=== PATIENT | male | born 1995 | race American Indian/Alaskan Native ===

== ENCOUNTER 2017-03-12 19:18 | Emergency (ER) | payer OTHER ==
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
[2017-03-13 00:38] VITALS: BP 104/58
== END 2017-03-12 23:24 | disposition home or self-care (01) ==
LOC: ED 19:18
DX: S56.912A Strain of unspecified muscles, fascia and tendons at forearm level, left arm, initial encounter (principal); F17.200 Nicotine dependence, unspecified, uncomplicated; V48.5XXA Car driver injured in noncollision transport accident in traffic accident, initial encounter; Y92.488 Other paved roadways as the place of occurrence of the external cause; Y93.89 Activity, other specified; Y99.9 Unspecified external cause status
CPT/HCPCS: 99283

== ENCOUNTER 2017-08-12 20:15 | Emergency (ER) | payer SELFPAY ==
[2017-08-12] MEDS ORDERED: ASPIRIN PO ONE (20:41)
[2017-08-12 21:09] LABS: Basophils % (Auto) 0.5 % (0.0-1.8); Eosinophils # (Auto) 0.8 K/mm3 (0.0-0.4); Eosinophils % (Auto) 8.8 % (0.0-4.3); Hematocrit 38.4 % (35.5-45.6); Hemoglobin 13.4 gm/dl (11.8-15.2); Lymphocytes # (Auto) 2.6 K/mm3 (1.2-5.4); Lymphocytes % (Auto) 30.1 % (13.4-35.0); Mean Corpuscular HGB Conc 35 % (32-34); Mean Corpuscular Hemoglobin 32 pg (28-32); Mean Corpuscular Volume 92 fl (84-94); Monocytes # (Auto) 0.7 K/mm3 (0.0-0.8); Monocytes % (Auto) 7.6 % (0.0-7.3); Platelet Count 243 K/mm3 (140-440); Red Blood Count 4.16 M/mm3 (3.65-5.03); Red Cell Distribution Width 12.2 % (13.2-15.2)
[2017-08-12 21:19] LABS: BUN/Creatinine Ratio 15; Blood Urea Nitrogen 12 mg/dL (9-20); Calcium 9.2 mg/dL (8.4-10.2); Hemolysis Index 3
[2017-08-12] MEDS ORDERED: TORADOL IM ONE (23:44)
[2017-08-13] MEDS ORDERED: ASPIRIN ONE (00:02)
--- NOTE | 2017-08-13 00:16 | Emergency Department Report ---
HPI - General Chief Complaint: Chest Pain Time Seen by Provider: 08/12/17 23:09 - HPI HPI: The patient is a 22-year-old male presents for reevaluation of chest pain. The patient reports mild chest pain for the past 2 weeks, recurrent yesterday, constant since onset yesterday, cramping in quality, midsternal in location, currently moderate in severity. The patient denies fever, neck pain, parasthesias, dyspnea, cough, hemoptysis, palpitations, dizziness, syncope, unilateral leg swelling, calf muscle pain. Patient also denies cocaine or other stimulant use, history of DVT or PE, recent immobilization, or history of cancer. ED Past Medical Hx - Past Medical History Previous Medical History?: No - Surgical History Past Surgical History?: No - Social History Smoking Status: Current Every Day Smoker Substance Use Type: Alcohol, Marijuana - Medications Home Medications: Home Medications Medication Instructions Recorded Confirmed Last Taken Type Cyclobenzaprine [Flexeril] 10 mg PO BID PRN #10 tablet 03/12/17 Unknown Rx Ibuprofen [Motrin 600 MG tab] 600 mg PO Q8H PRN #30 tablet 03/12/17 Unknown Rx Doxycycline Hyclate [Doxycycline 100 mg PO Q12HR #14 tab 04/13/17 Unknown Rx Hyclate TAB] traMADol [Ultram 50 MG tab] 50 mg PO Q6HR PRN #15 tablet 08/12/17 Unknown Rx ED Review of Systems ROS: Stated complaint: CHEST PAIN,STD Other details as noted in HPI Constitutional: denies: fever ENT: denies: throat or neck pain Respiratory: denies: cough, shortness of breath Cardiovascular: reports: chest pain Endocrine: denies unexplained weight loss or gain Gastrointestinal: denies: abdominal pain, nausea Genitourinary: denies: dysuria Musculoskeletal: denies: leg swelling Skin: denies: rash Neurological: denies: headache Hematological/Lymphatic: denies: easy bleeding or easy bruising Psych: denies sadness or hopelessness Physical Exam - Physical Exam Vital Signs: Vital Signs 08/12/17 08/12/17 08/12/17 20:34 23:20 23:25 Temperature 98.9 F 98.2 F Pulse Rate 68 56 L 55 L Respiratory 20 18 16 Rate Blood Pressure 105/41 Blood Pressure 105/41 119/71 [Left] O2 Sat by Pulse 98 100 100 Oximetry 08/12/17 23:28 Temperature Pulse Rate Respiratory 16 Rate Blood Pressure Blood Pressure [Left] O2 Sat by Pulse 100 Oximetry Physical Exam: General: well-nourished, well-developed, no acute distress Head: Normocephalic, atraumatic Eyes: normal sclera ENT: Mucous membranes are pink and moist Neck: trachea midline, neck supple, No neck stiffness, no cervical adenopathy Respiratory: Breath sounds equal bilaterally, no wheezing, rales, or rhonchi Cardio: S1 and S2 present, no murmurs, rubs, gallops, capillary refill is brisk Abdomen: Normoactive bowel sounds, soft abdomen, no rigidity, no guarding or rebound tenderness Chest WALL/Back: No tenderness to palpation of the chest wall, no CVA tenderness with percussion Musc: No pitting edema Skin: No rash Neuro: no facial drooping, normal speech Psych: Normal affect ED Course Vital Signs 08/12/17 08/12/17 08/12/17 20:34 23:20 23:25 Temperature 98.9 F 98.2 F Pulse Rate 68 56 L 55 L Respiratory 20 18 16 Rate Blood Pressure 105/41 Blood Pressure 105/41 119/71 [Left] O2 Sat by Pulse 98 100 100 Oximetry 08/12/17 23:28 Temperature Pulse Rate Respiratory 16 Rate Blood Pressure Blood Pressure [Left] O2 Sat by Pulse 100 Oximetry ED Medical Decision Making - Lab Data Result diagrams: 08/12/17 20:54 08/12/17 20:54 - Medical Decision Making The patient was seen and examined by myself. The patient is placed on a ekg monitor and continuous pulse ox. On initial evaluation, the patient was found to be in no distress. EKG was negative for findings suggestive of acute cardiac infarct. Labs and imaging are obtained. The patient is given pain medicine. Chest x-ray is negative for pneumothorax, focal consolidation, pulmonary vascular congestion, pleural effusion, or other obvious acute cardiopulmonary disease process. Lab results were non-concerning including levels of troponin, WBC, hemoglobin, hematocrit, electrolytes, renal function. The patient was reevaluated and reported that their symptoms were markedly improved. As the patient has a LISA risk score less than 2, and a well's score less than 2, the patient is at low risk of ACS or pulmonary emboli etiology of their symptoms. The patient is stable for discharge with outpatient follow-up. The patient is given follow-up and return instructions. The patient expressed understanding and agreed with the plan. The patient is discharged in stable condition. Critical care attestation.: If time is entered above; I have spent that time in minutes in the direct care of this critically ill patient, excluding procedure time. ED Disposition Clinical Impression: Chest pain in adult Disposition: DC-01 TO HOME OR SELFCARE Is pt being admited?: No Does the pt Need Aspirin: No Condition: Stable Instructions: Chest Pain (ED), Costochondritis (ED) Referrals: DOMINIQUE AREVALO MD [Primary Care Provider] - 3-5 Days Time of Disposition: 23:44
[2017-08-13] MEDS ORDERED: XYLOCAINE 1% MPF 5 mL INFILTRATI ONE (00:37)
[2017-08-13] MEDS ORDERED: ROCEPHIN IM ONE (00:37)
[2017-08-13] MEDS ORDERED: ZITHROMAX PO ONE (00:37)
[2017-08-13] MEDS ORDERED: ZITHROMAX ONE (00:42)
[2017-08-13] MEDS ORDERED: XYLOCAINE 1% MPF 5 mL ONE (00:43)
[2017-08-13] MEDS ORDERED: ROCEPHIN ONE (00:43)
[2017-08-13 01:34] VITALS: BP 103/64
--- NOTE | 2017-08-13 08:01 | XRay Report ---
FINAL REPORT EXAM: XR CHEST 1V AP HISTORY: chest pain TECHNIQUE: A portable view of the chest was obtained. FINDINGS: The heart size and vascularity appear normal. There are calcified lymph nodes in left hilum and left suprahilar area. There are no acute infiltrates or effusions. There EKG leads overlying the chest wall. The bones and soft tissues do not show any acute changes. IMPRESSION: No active chest disease.
== END 2017-08-13 01:35 | disposition home or self-care (01) ==
LOC: ED 20:15
DX: R07.2 Precordial pain (principal); F17.200 Nicotine dependence, unspecified, uncomplicated; F12.10 Cannabis abuse, uncomplicated
CPT/HCPCS: 36415; 71045; 80048; 84484; 85025; 93005; 93010; 96372; 99284; J0696; J1885

== ENCOUNTER 2017-09-14 17:43 | Emergency (ER) | payer SELFPAY ==
[2017-09-14 17:51] VITALS: BP 108/50
== END 2017-09-14 21:10 | disposition left against medical advice (07) ==
LOC: ED 17:43
DX: Z11.3 Encounter for screening for infections with a predominantly sexual mode of transmission (principal); Z53.21 Procedure and treatment not carried out due to patient leaving prior to being seen by health care provider